=== PATIENT | female | born 1985 | race Hispanic/Latino ===

== ENCOUNTER 2019-07-04 04:29 | Emergency (ER) | payer BC, OTHER | END 2019-07-04 04:34 | LOC: EDH 04:29 | DX: Z02.83 Encounter for blood-alcohol and blood-drug test (principal) | CPT/HCPCS: 36415 ==

== ENCOUNTER 2021-08-02 11:06 | Emergency (ER) | payer OTHER ==
[~2021-08-02] VITALS: Ht 157.5 cm; Wt 90.7 kg
[2021-08-02 11:10] VITALS: BP 173/98
[2021-08-02] MEDS ORDERED: ACETAMINOPHEN 500 MG TABLET PO ONE (11:30)
[2021-08-02] MEDS ORDERED: PHENAZOPYRIDINE HCL 200 MG TABLET PO ONE (11:30)
[2021-08-02 11:37] LABS: APPEARANCE,URINE CLEAR (CLEAR); BILIRUBIN,URINE NEGATIVE (NEGATIVE); COLOR,URINE YELLOW (YELLOW); GLUCOSE, URINE (UA) >=1000 mg/dL (NEGATIVE); KETONES,URINE NEGATIVE (NEGATIVE); LEUKOCYTE ESTERASE ,URINE NEGATIVE (NEGATIVE); NITRATE,URINE NEGATIVE (NEGATIVE); OCCULT BLOOD,URINE LARGE (NEGATIVE); PROTEIN,URINE 30 mg/dL (NEGATIVE); UROBILINOGEN,URINE 0.2 mg/dL (0.2-1.0)
[2021-08-02 11:41] LABS: HCG,QUAL RESULT NEGATIVE (NEGATIVE)
[2021-08-02] MEDS ORDERED: PHEN-846 PO (12:20)
[2021-08-02 12:22] LABS: BACTERIA,URINE Few /HPF (None Seen)
== END 2021-08-02 12:47 | disposition home or self-care (01) ==
LOC: EDH 11:06
DX: N76.0 Acute vaginitis (principal); R30.0 Dysuria; E11.9 Type 2 diabetes mellitus without complications
CPT/HCPCS: 81001; 81025